=== PATIENT | male | born 1990 | race Caucasian/White ===

== ENCOUNTER 2024-11-23 04:12 | Emergency (ER) | payer OTHER, SELFPAY ==
[2024-11-23 04:20] VITALS: BP 162/100; PULSE 56; RESP 20; TEMP 36.4; O2SAT 97; BMI 44.9
--- NOTE | 2024-11-23 04:23 | ECG_ITS ---
[facility]: 2024-[facility]23 Pat Name: Marques Mitchell Department: Room: Gender: Male Investment Associate: : 1990 Requested By: Octavio Calles Order Number: [id number] Reading MD: Measurements Intervals [place] Rate: 50 P: -20 UT: 160 QRS: 17 QRSD: 105 T: 21 QT: 403 QTc: 370 Interpretive Statements SINUS BRADYCARDIA No previous ECG available for comparison [email or web address] [id number]
--- NOTE | 2024-11-23 04:27 | W.ED.NAVMDI ---
Documented by User: Octavio Howard DO 11/23/24 06:04 HPI - Nausea/Vomiting/Diarrhea General: Chief complaint: Nausea/Vomiting/Diarrhea Stated complaint: Heartburn\V with Blood Time Seen by Provider: 11/23/24 04:25 History of Present Illness: 34-year-old male who awoke at 1 AM with epigastric pain. He took Tums, but vomited. At the end of the episode, he noticed some bright red blood. There were no clots present. He continues to have some epigastric pain. He states that he was cold, clammy, and sweaty. No urinary symptoms. No diarrhea. No fever. No sick contacts. No history of abdominal surgery. He uses chewing tobacco, and drinks alcohol, and was worried about an ulcer. Related Data Previous Rx's ?Medication ?Instructions ?Recorded hydrocodone 5 mg-acetaminophen 325 1 tab PO Q8H PRN pain #7 tabs 11/23/24 mg tablet ketorolac 10 mg tablet 10 mg PO TID PRN pain #10 tabs 11/23/24 ondansetron 4 mg disintegrating 4 mg PO Q6H PRN nausea and 11/23/24 tablet vomiting #14 tabs Allergies Allergy/AdvReac Type Severity Reaction Status Date / Time No Known Allergies Allergy Verified 11/23/24 04:26 Physical Exam Const: COMMON NORMALS: no acute distress GENERAL APPEARANCE: cooperative and diaphoretic HENMT: COMMON NORMALS: normocephalic, atraumatic and Normal external nose present HEAD & SCALP: normocephalic and atraumatic FACE & SINUS: normal facial exam and face symmetric NOSE: Normal external nose present Eye: COMMON NORMALS: Equal, round and reactive pupils present and EOMs intact bilaterally PUPIL: Yes Equal, round and reactive pupils present Neck/C-Spine: GENERAL: Yes trachea midline Chest: CHEST: Yes Symmetrical chest wall rise Resp: COMMON NORMALS: normal respiratory effort, No retractions, No use of accessory muscles and clear to auscultation bilaterally AUSCULTATION: clear to auscultation bilaterally Cardio: COMMON NORMALS: regular rate and regular rhythm RATE: regular rate RHYTHM: regular rhythm GI: COMMON NORMALS: Soft to palpation INSPECTION: Yes abdominal distension (Mild) PALPATION: Yes Soft to palpation and Yes Tenderness to palpation present (GI) (Mild diffuse) Extremity: COMMON NORMALS: no pedal edema Neuro: TERRY COMA SCALE: document GCS findings [place] coma scale eye opening: Spontaneous [place] coma scale verbal response: Orientated [place] coma scale motor response: Obey commands [place] coma scale total score: 15 SENSORY EXAM: Yes extremities (intact) Psych: COMMON NORMALS: speech normal SPEECH: Yes normal speech Skin: COMMON NORMALS: no rashes or lesions noted GENERAL SKIN EXAM: no rashes or lesions noted Course Vital Signs: Vital signs: Vital Signs Temperature 97.6 F 11/23/24 04:20 Pulse Rate 54 L 11/23/24 06:11 Respiratory Rate 18 11/23/24 06:11 Blood Pressure 154/99 11/23/24 06:11 Pulse Oximetry 99 11/23/24 06:11 Oxygen Delivery Me thod Room Air 11/23/24 04:20 MDM - Nausea/Vomiting/Diarrhea Medical Decision Making Vitals are stable. He is afebrile. White blood cell count is normal. BMP is normal. Liver enzymes are normal. Bilirubin is 0.5. Lactic acid is 1.7. CRP is 4.5. His first troponin is nondetectable. EKG shows no acute ST wave changes. His lipase is 21. CT scan shows cholelithiasis. Right upper quadrant ultrasound is suggested and has been ordered. Right upper quadrant ultrasound reveals gallstones. No gallbladder wall thickening, fluid, or common bile duct dilatation. He will be discharged with a diagnosis of biliary colic. Symptomatic treatment. Case management has been asked to make the patient a follow-up appointment with surgery. Lab Data 11/23/24 04:46 11/23/24 04:46 Radiology Impressions Abdomen/Pelvis CT 11/23/24 04:43 IMPRESSION: 1. Cholelithiasis. Given epigastric pain, consider right upper quadrant ultrasound for further assessment. 2. Otherwise, no acute findings of the abdomen. COMMENTS: Consistent with the [employer]'s Incidental Findings Committee white paper (J Am Yola Radiol 2018): Any incidental renal lesion less than 1 cm or classified as too small to characterize, or any incidental cystic renal lesion characterized as simple-appearing, is likely benign. No follow-up imaging is recommended for these lesions per consensus recommendations based on imaging criteria. Gallbladder Ultrasound 11/23/24 05:36 IMPRESSION: 1. Cholelithiasis. Several stones in the gallbladder but no evidence for acute cholecystitis. 2. Normal bile duct. Laboratory Results WBC 7.97 10^3/uL (3.29-11.43) 11/23/24 04:46 RBC 5.36 10^6/uL (3.85-5.65) 11/23/24 04:46 Hgb 15.50 g/dL (11.27-16.99) 11/23/24 04:46 Hct 46.5 % (37-53) 11/23/24 04:46 MCV 86.8 fl (82-101) 11/23/24 04:46 MCH 28.9 pg (27-33) 11/23/24 04:46 MCHC 33.3 g/dL (30-55) 11/23/24 04:46 RDW 12.4 % (12.1-15.1) 11/23/24 04:46 Plt Count 363 10^3/cmm (157-399) 11/23/24 04:46 MPV 10.0 fL (7.4-10.4) 11/23/24 04:46 Neut % (Auto) 49.7 % 11/23/24 04:46 Lymph % (Auto) 38.1 % 11/23/24 04:46 [place] % (Auto) 7.8 % 11/23/24 04:46 Eos % (Auto) 3.1 % 11/23/24 04:46 Baso % (Auto) 1.0 % 11/23/24 04:46 Neut # (Auto) 3.96 10^3/uL (1.8-7.7) 11/23/24 04:46 Lymph # (Auto) 3.0 10^3/uL (0.8-4.8) 11/23/24 04:46 [place] # (Auto) 0.6 10^3/uL (0.2-0.9) 11/23/24 04:46 Eos # (Auto) 0.3 10^3/uL (0.0-0.8) 11/23/24 04:46 Baso # (Auto) 0.1 10^3/uL (0.0-0.1) 11/23/24 04:46 Nucleated RBC % (auto) 0 % 11/23/24 04:46 Nucleated RBCs # 0.0 /100WBC 11/23/24 04:46 PT 13.30 SECONDS (12.1-14.9) 11/23/24 04:46 INR 0.94 (0.8-1.2) 11/23/24 04:46 APTT 26.7 SECONDS (23.9-36.7) 11/23/24 04:46 Sodium 140 mmol/L (136-145) 11/23/24 04:46 Potassium 4.1 mmol/L (3.5-5.1) 11/23/24 04:46 Chloride 102 mmol/L (98-107) 11/23/24 04:46 Carbon Dioxide 24 mmol/L (22-29) 11/23/24 04:46 Anion Gap 18.1 (5-19) 11/23/24 04:46 BUN 18 mg/dL (6-20) 11/23/24 04:46 Creatinine 1.0 mg/dL (0.7-1.2) 11/23/24 04:46 GFR Calculation 85.5 mL/min (90-130) L 11/23/24 04:46 Glucose 120 mg/dL (65-115) H 11/23/24 04:46 Calculated Osmolality 293 mOsm/kg (285-295) 11/23/24 04:46 Lactic Acid 1.7 mmol/L (0.5-2.2) 11/23/24 04:46 Calcium 9.3 mg/dL (8.5-10.5) 11/23/24 04:46 Total Bilirubin 0.5 mg/dL (0.15-1.2) 11/23/24 04:46 AST 21 U/L (0-40) 11/23/24 04:46 ALT 26 U/L (0-41) 11/23/24 04:46 Alkaline Phosphatase 93 U/L (40-130) 11/23/24 04:46 Troponin T Baseline < 6 ng/L (0-15) 11/23/24 04:46 Troponin T 120 Minute 6.00 ng/L (0-15) 11/23/24 06:38 Delta Troponin T 0.09610 ABS# (0-10) 11/23/24 06:38 C-Reactive Protein 4.5 mg/L (0.0-4.9) 11/23/24 04:46 Total Protein 7.6 g/dL (6.6-8.7) 11/23/24 04:46 Albumin 4.5 g/dL (3.5-5.2) 11/23/24 04:46 Globulin 3.1 g/dL (1.3-4.6) 11/23/24 04:46 Lipase 21 U/L (13-60) 11/23/24 04:46 Ethyl Alcohol < 10 mg/dL (0-10) 11/23/24 04:46 All radiology interpretation(s) finalized by discharge Discharge Plan Discharge Patient Disposition: Home Clinical Impression: Biliary colic Condition: Stable Prescriptions: New hydrocodone-acetaminophen 5-325 mg tablet 1 tab PO Q8H PRN (Reason: pain) Qty: 7 0RF ketorolac 10 mg tablet 10 mg PO TID PRN (Reason: pain) Qty: 10 0RF ondansetron 4 mg tablet,disintegrating 4 mg PO Q6H PRN (Reason: nausea and vomiting) Qty: 14 0RF Discharge Orders: Discharge ED (Routine); Ordered 11/23/24 Ordered By: Octavio Howard Patient Instructions: Biliary Colic (ED), Abdominal Pain (ED), Opioid Safety, Pain Management Activity Restrictions/Additional Instructions: Follow a liquid diet for the next 12 hours. You may increase your diet as tolerated following that given no vomiting or pain. Medication as directed. Take nausea medication scheduled every 4 hours while awake for the first 24 hours then as needed. Return for any problems. Case management has been asked to make an appointment with the surgery clinic. You should hear from them this week. Print Language: Australian Coding Level of Care Code ED Coat Hanger Shaper Machine Operator for Chg Fwd Documented by User: Arsalan Bruno DO 11/23/24 08:08 HPI - Nausea/Vomiting/Diarrhea General: Chief complaint: Nausea/Vomiting/Diarrhea Stated complaint: Heartburn\V with Blood Time Seen by Provider: 11/23/24 04:25 Related Data Previous Rx's ?Medication ?Instructions ?Recorded hydrocodone 5 mg-acetaminophen 325 1 tab PO Q8H PRN pain #7 tabs 11/23/24 mg tablet ketorolac 10 mg tablet 10 mg PO TID PRN pain #10 tabs 11/23/24 ondansetron 4 mg disintegrating 4 mg PO Q6H PRN nausea and 11/23/24 tablet vomiting #14 tabs Allergies Allergy/AdvReac Type Severity Reaction Status Date / Time No Known Allergies Allergy Verified 11/23/24 04:26 Physical Exam Neuro: TERRY COMA SCALE: document GCS findings [place] coma scale total score: 15 Course Vital Signs: Vital signs: Vital Signs Temperature 97.6 F 11/23/24 04:20 Pulse Rate 54 L 11/23/24 06:11 Respiratory Rate 18 11/23/24 06:11 Blood Pressure 154/99 11/23/24 06:11 Pulse Oximetry 99 11/23/24 06:11 Oxygen Delivery Me thod Room Air 11/23/24 04:20 MDM - Nausea/Vomiting/Diarrhea Lab Data 11/23/24 04:46 11/23/24 04:46 Radiology Impressions Abdomen/Pelvis CT 11/23/24 04:43 IMPRESSION: 1. Cholelithiasis. Given epigastric pain, consider right upper quadrant ultrasound for further assessment. 2. Otherwise, no acute findings of the abdomen. COMMENTS: Consistent with the [employer]'s Incidental Findings Committee white paper (J Am Yola Radiol 2018): Any incidental renal lesion less than 1 cm or classified as too small to characterize, or any incidental cystic renal lesion characterized as simple-appearing, is likely benign. No follow-up imaging is recommended for these lesions per consensus recommendations based on imaging criteria. Gallbladder Ultrasound 11/23/24 05:36 IMPRESSION: 1. Cholelithiasis. Several stones in the gallbladder but no evidence for acute cholecystitis. 2. Normal bile duct. Laboratory Results WBC 7.97 10^3/uL (3.29-11.43) 11/23/24 04:46 RBC 5.36 10^6/uL (3.85-5.65) 11/23/24 04:46 Hgb 15.50 g/dL (11.27-16.99) 11/23/24 04:46 Hct 46.5 % (37-53) 11/23/24 04:46 MCV 86.8 fl (82-101) 11/23/24 04:46 MCH 28.9 pg (27-33) 11/23/24 04:46 MCHC 33.3 g/dL (30-55) 11/23/24 04:46 RDW 12.4 % (12.1-15.1) 11/23/24 04:46 Plt Count 363 10^3/cmm (157-399) 11/23/24 04:46 MPV 10.0 fL (7.4-10.4) 11/23/24 04:46 Neut % (Auto) 49.7 % 11/23/24 04:46 Lymph % (Auto) 38.1 % 11/23/24 04:46 [place] % (Auto) 7.8 % 11/23/24 04:46 Eos % (Auto) 3.1 % 11/23/24 04:46 Baso % (Auto) 1.0 % 11/23/24 04:46 Neut # (Auto) 3.96 10^3/uL (1.8-7.7) 11/23/24 04:46 Lymph # (Auto) 3.0 10^3/uL (0.8-4.8) 11/23/24 04:46 [place] # (Auto) 0.6 10^3/uL (0.2-0.9) 11/23/24 04:46 Eos # (Auto) 0.3 10^3/uL (0.0-0.8) 11/23/24 04:46 Baso # (Auto) 0.1 10^3/uL (0.0-0.1) 11/23/24 04:46 Nucleated RBC % (auto) 0 % 11/23/24 04:46 Nucleated RBCs # 0.0 /100WBC 11/23/24 04:46 PT 13.30 SECONDS (12.1-14.9) 11/23/24 04:46 INR 0.94 (0.8-1.2) 11/23/24 04:46 APTT 26.7 SECONDS (23.9-36.7) 11/23/24 04:46 Sodium 140 mmol/L (136-145) 11/23/24 04:46 Potassium 4.1 mmol/L (3.5-5.1) 11/23/24 04:46 Chloride 102 mmol/L (98-107) 11/23/24 04:46 Carbon Dioxide 24 mmol/L (22-29) 11/23/24 04:46 Anion Gap 18.1 (5-19) 11/23/24 04:46 BUN 18 mg/dL (6-20) 11/23/24 04:46 Creatinine 1.0 mg/dL (0.7-1.2) 11/23/24 04:46 GFR Calculation 85.5 mL/min (90-130) L 11/23/24 04:46 Glucose 120 mg/dL (65-115) H 11/23/24 04:46 Calculated Osmolality 293 mOsm/kg (285-295) 11/23/24 04:46 Lactic Acid 1.7 mmol/L (0.5-2.2) 11/23/24 04:46 Calcium 9.3 mg/dL (8.5-10.5) 11/23/24 04:46 Total Bilirubin 0.5 mg/dL (0.15-1.2) 11/23/24 04:46 AST 21 U/L (0-40) 11/23/24 04:46 ALT 26 U/L (0-41) 11/23/24 04:46 Alkaline Phosphatase 93 U/L (40-130) 11/23/24 04:46 Troponin T Baseline < 6 ng/L (0-15) 11/23/24 04:46 Troponin T 120 Minute 6.00 ng/L (0-15) 11/23/24 06:38 Delta Troponin T 0.73498 ABS# (0-10) 11/23/24 06:38 C-Reactive Protein 4.5 mg/L (0.0-4.9) 11/23/24 04:46 Total Protein 7.6 g/dL (6.6-8.7) 11/23/24 04:46 Albumin 4.5 g/dL (3.5-5.2) 11/23/24 04:46 Globulin 3.1 g/dL (1.3-4.6) 11/23/24 04:46 Lipase 21 U/L (13-60) 11/23/24 04:46 Ethyl Alcohol < 10 mg/dL (0-10) 11/23/24 04:46 Discharge Plan Discharge Patient Disposition: Home Clinical Impression: Biliary colic Condition: Stable Prescriptions: New hydrocodone-acetaminophen 5-325 mg tablet 1 tab PO Q8H PRN (Reason: pain) Qty: 7 0RF ketorolac 10 mg tablet 10 mg PO TID PRN (Reason: pain) Qty: 10 0RF ondansetron 4 mg tablet,disintegrating 4 mg PO Q6H PRN (Reason: nausea and vomiting) Qty: 14 0RF Discharge Orders: Discharge ED (Routine); Ordered 11/23/24 Ordered By: Octavio Howard Patient Instructions: Biliary Colic (ED), Abdominal Pain (ED), Opioid Safety, Pain Management Activity Restrictions/Additional Instructions: Follow a liquid diet for the next 12 hours. You may increase your diet as tolerated following that given no vomiting or pain. Medication as directed. Take nausea medication scheduled every 4 hours while awake for the first 24 hours then as needed. Return for any problems. Case management has been asked to make an appointment with the surgery clinic. You should hear from them this week. Print Language: Australian Coding Level of Care Code ED Coat Hanger Shaper Machine Operator for Ruthy Dockery
--- NOTE | 2024-11-23 04:43 | CTR_ITS ---
PROCEDURE INFORMATION: Exam: CT Abdomen And Pelvis With Contrast Exam date and time: 11/23/2024 5:13 AM Age: 34 years old Clinical indication: Nausea and vomiting; Abdominal pain; Epigastric pain with n/v; Additional info: Epigastric pain, vomiting TECHNIQUE: Imaging protocol: Computed tomography of the abdomen and pelvis with contrast. Radiation optimization: All CT scans at this facility use at least one of these dose optimization techniques: automated exposure control; mA and/or kV adjustment per patient size (includes targeted exams where dose is matched to clinical indication); or iterative reconstruction. Contrast material: OMNI 350; Contrast volume: 100 ml; Contrast route: INTRAVENOUS (IV); COMPARISON: No relevant prior studies available. RADIATION DOSE METRICS: Total DLP (mGy-cm): 2120.35 FINDINGS: Lungs: Basilar scarring/atelectasis. Heart: Base of heart is unremarkable as visualized. Liver: Normal. No mass. Gallbladder and biliary ducts: Cholelithiasis. Pancreas: Normal. No ductal dilation. Spleen: Subcentimeter ill-defined splenic lesion (series 3, image 32). Adrenal glands: Normal. No mass. Kidneys and ureters: Right lower posterior renal hypodensity too small to characterize by modality, statistically likely to represent benign findings. Stomach and bowel: Unremarkable. No obstruction. No mucosal thickening. Moderate colonic stool burden. Appendix: No evidence of appendicitis. Intraperitoneal space: Unremarkable. No free air. No significant fluid collection. Vasculature: Pelvic phleboliths. Lymph nodes: Unremarkable. No enlarged lymph nodes. Urinary bladder: Unremarkable as visualized. Reproductive: Unremarkable as visualized. Bones/joints: Early degenerative change of the L5-S1 lumbar level. Probable yazw-os-zsuqrmyh spinal canal narrowing at L5-S1. Probable severe right neural foraminal narrowing at L5-S1. Probable moderate left neural foraminal narrowing at L5-S1. Soft tissues: Small fat containing umbilical hernia. CT/CT abdomen pelvis w con* [id number] IMPRESSION: 1. Cholelithiasis. Given epigastric pain, consider right upper quadrant ultrasound for further assessment. 2. Otherwise, no acute findings of the abdomen. COMMENTS: Consistent with the [employer]'s Incidental Findings Committee white paper (J Am Yola Radiol 2018): Any incidental renal lesion less than 1 cm or classified as too small to characterize, or any incidental cystic renal lesion characterized as simple-appearing, is likely benign. No follow-up imaging is recommended for these lesions per consensus recommendations based on imaging criteria.
[2024-11-23 04:53] LABS: Basophils # 0.1 10^3/uL (0.0-0.1); Eosinophils # 0.3 10^3/uL (0.0-0.8); Eosinophils % 3.1 %; Hematocrit 46.5 % (37-53); Lymphocytes % 38.1 %; Mean Corpuscular HGB Conc 33.3 g/dL (30-55); Mean Corpuscular Hemoglobin 28.9 pg (27-33); Mean Corpuscular Volume 86.8 fl (82-101); Monocytes # 0.6 10^3/uL (0.2-0.9); Monocytes % 7.8 %; Neutrophils # 3.96 10^3/uL (1.8-7.7); Neutrophils % 49.7 %; Nucleated Red Blood Cells % 0 %; Platelet Count 363 10^3/cmm (157-399); Red Blood Count 5.36 10^6/uL (3.85-5.65); Red Cell Distribution Width 12.4 % (12.1-15.1); White Blood Count 7.97 10^3/uL (3.29-11.43)
[2024-11-23 04:56] VITALS: PULSE 62; RESP 18; O2SAT 98
[2024-11-23] MEDS: morphine 4 mg/mL SDV 1 mL IVP (05:08)
[2024-11-23] MEDS: ondansetron 2 mg/ML SDV 2 mL 4 MG IVP (05:08)
[2024-11-23] MEDS: sodium chloride 0.9% 1,000 ML 999 ML IV (05:08)
[2024-11-23 05:13] LABS: INR 0.94 (0.8-1.2)
[2024-11-23 05:14] LABS: Partial Thromboplastin Time 26.7 SECONDS (23.9-36.7)
[2024-11-23 05:19] LABS: Troponin(5th) Baseline < 6 ng/L (0-15)
[2024-11-23 05:21] LABS: Lactic Sepsis W/Reflex 1.7 mmol/L (0.5-2.2)
[2024-11-23 05:22] LABS: Alanine Aminotransferase 26 U/L (0-41); Albumin Level 4.5 g/dL (3.5-5.2); Alkaline Phosphatase 93 U/L (40-130); Aspartate Amino Transferase 21 U/L (0-40); Blood Urea Nitrogen 18 mg/dL (6-20); C Reactive Protein 4.5 mg/L (0.0-4.9); Calcium 9.3 mg/dL (8.5-10.5); Carbon Dioxide 24 mmol/L (22-29); Chloride 102 mmol/L (98-107); Globulin 3.1 g/dL (1.3-4.6); Glomerular Filtration Rate 85.5 mL/min (90-130); Glucose 120 mg/dL (65-115); Lipase 21 U/L (13-60); Osmolality Calculated 293 mOsm/kg (285-295); Sodium 140 mmol/L (136-145); Total Bilirubin 0.5 mg/dL (0.15-1.2); Total Protein 7.6 g/dL (6.6-8.7)
[2024-11-23] MEDS: iohexol 350 mg/mL 500 mL Btl (per mL) IV (05:24)
[2024-11-23 05:27] LABS: Alcohol Level < 10 mg/dL (0-10); Anion Gap 18.1 (5-19); Potassium 4.1 mmol/L (3.5-5.1)
--- NOTE | 2024-11-23 05:36 | US_ITS ---
WS: [id number] RIGHT UPPER QUADRANT ULTRASOUND HISTORY: epigastric and ruq pain COMPARISON: CT 11/23/2024 Liver: 16.0 cm in length. Normal size liver and echogenicity. No bile duct dilatation or mass. Portal Vein: Normal hepatopetal flow with monophasic waveform. Gallbladder: Normally distended with several stones in the gallbladder. No wall thickening or pericholecystic fluid. CBD: 0.5 cm Pancreas: Normal size and echogenicity. Right kidney: 14.0 cm in length. Normal size and echogenicity. No hydronephrosis or mass. Aorta and IVC: Unremarkable abdominal aorta and IVC. No ascites. US/US gall bladder [id number] IMPRESSION: 1. Cholelithiasis. Several stones in the gallbladder but no evidence for acute cholecystitis. 2. Normal bile duct.
[2024-11-23 06:11] VITALS: BP 154/99; PULSE 54; RESP 18; O2SAT 99
[2024-11-23] MEDS: ketorolac 30 mg/mL INJ IVP (06:13)
--- NOTE | 2024-11-23 06:45 | ECG_ITS ---
[facility]: [facility]23 Pat Name: Marques Mitchell Department: Room: Gender: Male Contact Center Specialist: : 1990 Requested By: Octavio Calles Order Number: [id number] Reading MD: Measurements Intervals [place] Rate: 50 P: -20 MN: 160 QRS: 17 QRSD: 105 T: 21 QT: 403 QTc: 370 Interpretive Statements SINUS BRADYCARDIA No previous ECG available for comparison [email or web address] [id number]
[2024-11-23 07:00] LABS: Troponin 5 2HR Delta 0.00001 ABS# (0-10)
== END 2024-11-23 06:47 | disposition home or self-care (01) ==
PROVIDERS: Emergency Provider Emergency Medicine
DX: K80.50 Calculus of bile duct without cholangitis or cholecystitis without obstruction (principal)
CPT/HCPCS: 36415; 74177; 76705; 80053; 80307; 83605; 83690; 84484; 85025; 85610; 85730; 86140; 93005; 96361; 96374; 96375; 99285; J1885; J2270; J2405; J7030